=== PATIENT | male | born 1995 | race Caucasian/White ===

== ENCOUNTER 2016-10-17 06:41 | Day surgery (SDC) | payer OTHER ==
[~2016-10-17 06:41] MED LIST: FENTANYL 250 MCG/5 ML AMP IV PRN; LIDOCAINE Viscous 2% 15 ML UDCUP PO PRN; MIDAZOLAM HCL 5 MG/5 ML VIAL IV PRN
[2016-10-17] MEDS ORDERED: LACTATED RINGERS 1,000 ML IV SCH (06:45)
[2016-10-17] MEDS ORDERED: LACTATED RINGERS 1,000 ML ONE (06:55)
[2016-10-17] MEDS ORDERED: IV START KIT ONE (06:55)
[2016-10-17] MEDS ORDERED: FENTANYL 5 ML ONE (08:35)
[2016-10-17] MEDS ORDERED: LIDOCAINE Viscous 2% 15 ML UDCUP ONE (08:35)
[2016-10-17] MEDS ORDERED: MIDAZOLAM HCL 5 MG/5 ML VIAL ONE (08:35)
[2016-10-17 13:10] LABS: HELICOBACTER PYLORII DETECTION NEGATIVE (NEGATIVE)
--- NOTE | 2016-10-21 08:54 | SURGPATH ---
[facility] [address] [place] [id number] Patient Name: JESUS BURGER MR#: [id number] : 1995 Gender: M Specimen #: [id number] Collected: 10/17/2016 Received: 10/18/2016 Reported: 10/21/2016 Submitting Phys: LINDEN OLMOS Copy To Phys: [facility] Clinical History / Pre-Operative Diagnosis: Weight loss, fatigue, rule out; giardia, celiac sprue, gastritis Specimen Source / Surgical Procedure Performed: #1 duodenal biopsy, #2 antral biopsy Interpretation: 1. DUODENUM, BIOPSY: - NO PATHOLOGIC ABNORMALITIES 2. GASTRIC ANTRUM, BIOPSY: - NO PATHOLOGIC ABNORMALITIES Electronically Signed Out Lan Boyle M.D. Gross Description: 1. The specimen is received in formalin labeled with the patient's name and "duodenum". The specimen consists of a single fragment of yun soft tissue, 0.6 cm in greatest dimension. Submitted in toto in one cassette 2. The specimen is received in formalin labeled with the patient's name and "antrum". The specimen consists of two fragments of yun soft tissue each is 0.3-0.6 cm in greatest dimension. Submitted in toto in one cassette RICKY Heck Microscopic Description: 1. The sections show fragments of small bowel mucosa exhibiting a normal architectural pattern without evidence of villous blunting. There are no inflammatory or neoplastic features and there are no microorganisms identified. 2. The sections show fragments of gastric mucosa exhibiting a normal architectural pattern. There are no inflammatory or neoplastic features and there are no Helicobacter-like organisms identified. 1: 23780 2: 86185 R63.4
== END 2016-10-17 09:32 | disposition home or self-care (01) ==
LOC: SDC 06:41
PROVIDERS: ATTEND Internal Medicine Gastroenterology
PROC: 0DB98ZX Excision of Duodenum, Via Natural or Artificial Opening Endoscopic, Diagnostic (ICD-10-PCS; principal; 2016-10-17)
PROC: 0DB68ZX Excision of Stomach, Via Natural or Artificial Opening Endoscopic, Diagnostic (ICD-10-PCS; 2016-10-17)
DX: R63.4 Abnormal weight loss (principal); R53.83 Other fatigue; K29.70 Gastritis, unspecified, without bleeding; K29.80 Duodenitis without bleeding; Z87.891 Personal history of nicotine dependence
CPT/HCPCS: 87081; 43239; J3010; J2250; A9270; J7120